=== PATIENT | male | born 1995 | race African-American/Black ===

== ENCOUNTER 2017-12-21 17:51 | Emergency (ER) | payer OTHER ==
--- NOTE | 2017-12-21 20:49 | EDPHYS ---
Physician Documentation [facility] Name: Tomer Soto Age: 22 yrs Sex: Male : 1995 Arrival Date: 12/21/2017 Time: 17:53 Bed 23 Private MD: Marcial Montague ED Physician Vitaly Rocha HPI: 12/21 20:31 This 22 yrs old Black Male presents to ER via Wheelchair with complaints of Leg Pain. kb 19:06 The patient has been recently seen by a physician: the patient's primary care provider, kb 3 day(s) ago, with similar presenting complaints, and apparently given a diagnosis of DVT. Pt states he was diagnosed with a DVT and Dr Montague gave him a rx for eliquist, but insurance wouldn't pay for the right amount so he hasn't taken any. Pain is getting worse. 20:31 The patient presents with pain, that is acute. The complaints affect the right calf. kb Context: the patient can fully bear weight, the patient is able to ambulate, Problem is a result from a previous injury: No. Onset: The symptoms/episode began/occurred last week. Modifying factors: The symptoms are alleviated by nothing. the symptoms are aggravated by weight bearing. Associated signs and symptoms: Pertinent positives: calf tenderness, swelling, warmth, Pertinent negatives fever, nausea, numbness, rash, vomiting, warmth, weakness. Treatment prior to arrival includes: no previous treatment. Severity of symptoms: At their worst the symptoms were moderate, in the emergency department the symptoms are unchanged. The patient has not experienced similar symptoms in the past. Historical: - Allergies: 18:02 No Known Allergies; aa5 - PMHx: 18:02 None; aa5 - PSHx: 18:02 None; aa5 - Immunization history:: Adult Immunizations up to date. - Social history:: Smoking status: Patient/guardian denies using tobacco. - Ebola Screening: : No symptoms or risks identified at this time. ROS: 20:31 Constitutional: Negative for fever, chills, and weight loss, Cardiovascular: Negative kb for chest pain, palpitations, and edema, Respiratory: Negative for shortness of breath, cough, wheezing, and pleuritic chest pain, Abdomen/GI: Negative for abdominal pain, nausea, vomiting, diarrhea, and constipation, Back: Negative for injury and pain, Skin: Negative for injury, rash, and discoloration, Neuro: Negative for headache, weakness, numbness, tingling, and seizure. 20:31 MS/extremity: Positive for pain, tenderness, of the right calf. Exam: 20:31 Constitutional: This is a well developed, well nourished patient who is awake, alert, kb and in no acute distress. Head/Face: Normocephalic, atraumatic. Neck: Trachea midline, no thyromegaly or masses palpated, and no cervical lymphadenopathy. Supple, full range of motion without nuchal rigidity, or vertebral point tenderness. No Meningismus. Chest/axilla: Normal chest wall appearance and motion. Nontender with no deformity. No lesions are appreciated. Cardiovascular: Regular rate and rhythm with a normal S1 and S2. No gallops, murmurs, or rubs. Normal PMI, no JVD. No pulse deficits. Respiratory: Lungs have equal breath sounds bilaterally, clear to auscultation and percussion. No rales, rhonchi or wheezes noted. No increased work of breathing, no retractions or nasal flaring. Abdomen/GI: Soft, non-tender, with normal bowel sounds. No distension or tympany. No guarding or rebound. No evidence of tenderness throughout. Back: No spinal tenderness. No costovertebral tenderness. Full range of motion. Skin: Warm, dry with normal turgor. Normal color with no rashes, no lesions, and no evidence of cellulitis. Neuro: Awake and alert, GCS 15, oriented to person, place, time, and situation. Cranial nerves II-XII grossly intact. Motor strength 5/5 in all extremities. Sensory grossly intact. Cerebellar exam normal. Normal gait. 20:31 Musculoskeletal/extremity: Extremities: grossly normal except: noted in the right calf: pain, tenderness, ROM: intact in all extremities, Circulation is intact in all extremities. Sensation intact. Weight bearing: able to fully bear weight, DVT Exam: pain, swelling, tenderness, increased warmth. Vital Signs: 18:02 BP 108 / 69; Pulse 67; Resp 18 S; Temp 98.1(TE); Pulse Ox 100% on R/A; Weight 63.5 kg aa5 (R); Height 5 ft. 7 in. (170.18 cm) (R); Pain 8/10; 18:41 BP 112 / 70; Pulse 70; Resp 18; Pulse Ox 100% on R/A; Pain 8/10; mg2 19:54 BP 107 / 73; Pulse 60; Resp 18; Pulse Ox 100% ; Pain 4/10; mg2 21:21 BP 124 / 74; Pulse 70; Resp 18; Pulse Ox 100% on R/A; Pain 2/10; mg2 18:02 Body Mass Index 21.93 (63.50 kg, 170.18 cm) aa5 MDM: 18:37 Patient medically screened. kb 20:31 Data reviewed: vital signs, nurses notes. Data interpreted: Pulse oximetry: on room air kb is 100 %. Interpretation: normal. 20:34 Counseling: I had a detailed discussion with the patient and/or guardian regarding: the kb historical points, exam findings, and any diagnostic results supporting the discharge/admit diagnosis, radiology results, the need for outpatient follow up, a family practitioner, to return to the emergency department if symptoms worsen or persist or if there are any questions or concerns that arise at home. 20:46 ED course: Pt educated on need for eliquis that was prescribed by PCP. First dose given kb now and pt will go to pharmacy in the morning. . 12/21 18:59 Order name: US Extremity Venous Unilateral Ltd; Complete Time: 21:01 kb Administered Medications: 21:21 Drug: Eliquis 10 mg Route: PO; mg2 21:21 Follow up: Response: No adverse reaction; Medication administered at discharge. mg2 Disposition: 12/21/17 20:48 Discharged to Home. Impression: Acute embolism and thrombosis of deep veins of lower extremity. - Condition is Stable. - Discharge Instructions: Deep Vein Thrombosis. - Medication Reconciliation Form, Thank You Letter, Antibiotic Education, Prescription Opioid Use form. - Follow up: Emergency Department; When: As needed; Reason: Worsening of condition. Follow up: Marcial Montague; When: 2 - 3 days; Reason: Recheck today's complaints, Continuance of care, Re-evaluation by your physician. Addendum: 12/25/2017 07:15 Co-signature as Attending Physician, Vitaly Rocha MD I agree with the assessment and k dr plan of care. Signatures: Dispatcher [employer] EDMS Suellen Campos, SADDLE STITCHER-C SADDLE STITCHER-Vitaly Pepper MD MD [facility] Lily Travis, RN RN aa5 Francisco Morales, RN RN mg2 Corrections: (The following items were deleted from the chart) 12/21 21:22 20:48 12/21/2017 20:48 Discharged to Home. Impression: Acute embolism and thrombosis of mg2 deep veins of lower extremity. Condition is Stable. Discharge Instructions: Deep Vein Thrombosis. Forms are Medication Reconciliation Form, Thank You Letter, Antibiotic Education, Prescription Opioid Use. Follow up: Emergency Department; When: As needed; Reason: Worsening of condition. Follow up: Marcial Montague; When: 2 - 3 days; Reason: Recheck today's complaints, Continuance of care, Re-evaluation by your physician. kb
--- NOTE | 2017-12-21 20:49 | ER ---
Nurse's Notes [facility] Name: Tomer Soto Age: 22 yrs Sex: Male : 1995 Arrival Date: 12/21/2017 Time: 17:53 Bed 23 Private MD: Marcial Montague Diagnosis: Acute embolism and thrombosis of deep veins of lower extremity Presentation: 12/21 18:00 Presenting complaint: Patient states: "I came here [facility] because I was having right aa5 leg pain and they did an ultrasound but now my left leg is hurting as well". pt describes pain as sharp. Denies known injury. Transition of care: patient was not received from another setting of care. Onset of symptoms was November 2017. Risk Assessment: Do you want to hurt yourself or someone else? Patient reports no desire to harm self or others. Initial Sepsis Screen: Does the patient meet any 2 criteria? No. Patient's initial sepsis screen is negative. Does the patient have a suspected source of infection? No. Patient's initial sepsis screen is negative. Care prior to arrival: None. 18:00 Method Of Arrival: Wheelchair aa5 18:00 Acuity: VANNESA 3 aa5 Historical: - Allergies: 18:02 No Known Allergies; aa5 - PMHx: 18:02 None; aa5 - PSHx: 18:02 None; aa5 - Immunization history:: Adult Immunizations up to date. - Social history:: Smoking status: Patient/guardian denies using tobacco. - Ebola Screening: : No symptoms or risks identified at this time. Screenin:37 Abuse screen: Denies threats or abuse. Denies injuries from another. Nutritional mg2 screening: No deficits noted. Tuberculosis screening: No symptoms or risk factors identified. Fall Risk Gait- Weak (10 pts.). Assessment: 18:38 General: Appears in no apparent distress. comfortable, Behavior is calm, cooperative. mg2 Pain: Complains of pain in right calf Pain does not radiate. Pain currently is 8 out of 10 on a pain scale. Quality of pain is described as aching, Pain began gradually, 1 week Is intermittent. Neuro: Level of Consciousness is awake, alert, obeys commands, Oriented to person, place, time, situation. Cardiovascular: Capillary refill < 3 seconds Patient's skin is warm and dry. Respiratory: Airway is patent Respiratory effort is even, unlabored, Respiratory pattern is regular, symmetrical. GI: No signs and/or symptoms were reported involving the gastrointestinal system. : No signs and/or symptoms were reported regarding the genitourinary system. EENT: No deficits noted. Derm: Skin is intact, Skin is pink, warm \\T\\ dry. normal. Musculoskeletal: Circulation, motion, and sensation intact. 19:54 Reassessment: Patient appears in no apparent distress at this time. Patient and/or mg2 family updated on plan of care and expected duration. Pain level reassessed. Patient is alert, oriented x 3, equal unlabored respirations, skin warm/dry/pink. 21:21 Reassessment: Patient appears in no apparent distress at this time. Patient and/or mg2 family updated on plan of care and expected duration. Pain level reassessed. Patient is alert, oriented x 3, equal unlabored respirations, skin warm/dry/pink. Vital Signs: 18:02 BP 108 / 69; Pulse 67; Resp 18 S; Temp 98.1(TE); Pulse Ox 100% on R/A; Weight 63.5 kg aa5 (R); Height 5 ft. 7 in. (170.18 cm) (R); Pain 8/10; 18:41 BP 112 / 70; Pulse 70; Resp 18; Pulse Ox 100% on R/A; Pain 8/10; mg2 19:54 BP 107 / 73; Pulse 60; Resp 18; Pulse Ox 100% ; Pain 4/10; mg2 21:21 BP 124 / 74; Pulse 70; Resp 18; Pulse Ox 100% on R/A; Pain 2/10; mg2 18:02 Body Mass Index 21.93 (63.50 kg, 170.18 cm) aa5 ED Course: 17:53 Patient arrived in ED. rg4 17:53 Marcial Montague MD is Private Physician. rg4 18:01 Triage completed. aa5 18:01 Arm band placed on. aa5 18:33 Francisco Morales RN is Primary Nurse. mg2 18:37 Hang Campos FNP-C [facility]. kb 18:37 Vitaly Rocha MD is Attending Physician. kb 18:40 Patient has correct armband on for positive identification. Bed in low position. Call mg2 light in reach. Side rails up X 1. Pulse ox on. NIBP on. 20:47 US Extremity Venous Unilateral Ltd In Process Unspecified. EDMS 20:47 Ultrasound completed. Patient tolerated well. Notified SALES RECEPTIONIST/PA HANG. sg3 20:48 Marcial Montague MD is Referral Physician. kb 21:21 No provider procedures requiring assistance completed. Patient did not have IV access mg2 during this emergency room visit. Administered Medications: 21:21 Drug: Eliquis 10 mg Route: PO; mg2 21:21 Follow up: Response: No adverse reaction; Medication administered at discharge. mg2 Outcome: 20:48 Discharge ordered by . kb 21:22 Discharged to home via wheelchair. mg2 21:22 Condition: stable 21:22 Discharge instructions given to patient, family, Instructed on discharge instructions, follow up and referral plans. Demonstrated understanding of instructions, follow-up care. 21:22 Patient left the ED. mg2 Signatures: Dispatcher [employer] EDMS Hang Campos, COTTON WRINGER-C COTTON WRINGER-Lily Louis, CHRISTINA RN aa5 Jesusita Varghese 4 Charlotte Chen sg3 Francisco Morales RN RN mg2
--- NOTE | 2017-12-21 20:56 | RAD REPORT ---
EXAM DESCRIPTION: USExtremity Venous Uni Ltd12/21/2017 8:47 pm CLINICAL HISTORY: Right leg pain and swelling. COMPARISON: Extremity Venous Uni Ltd dated 12/19/2017 FINDINGS: Right common femoral, superficial femoral, and right popliteal veins are compressible and demonstrate augmentation. Doppler demonstrates good flow. Thrombus within the right popliteal vein is unchanged from the prior exam IMPRESSION: No change in the right popliteal venous thrombus. No additional deep veinous thrombus is seen
[2017-12-21] MEDS ORDERED: APIXABAN 5 MG TABLET ONE (21:08)
== END 2017-12-21 21:22 | disposition home or self-care (01) ==
LOC: ER 17:51
DX: I82.4Z1 Acute embolism and thrombosis of unspecified deep veins of right distal lower extremity (principal)
CPT/HCPCS: 93971; 99284